=== PATIENT | female | born 1990 ===

== ENCOUNTER 2017-07-02 14:28 | Outpatient (CLI) | payer OTHER ==
[~2017-07-02] VITALS: Ht 162.6 cm; Wt 54.4 kg
== END 2017-07-02 14:45 | disposition home or self-care (01) ==
LOC: OFIC 805 14:28
DX: J30.89 Other allergic rhinitis (principal)

== ENCOUNTER 2017-08-07 11:39 | Outpatient (CLI) | payer OTHER | END 2017-08-07 11:45 | disposition home or self-care (01) | LOC: LAB 11:39 | DX: J10.00 Influenza due to other identified influenza virus with unspecified type of pneumonia (principal) ==

== ENCOUNTER 2017-09-18 14:28 | Outpatient (CLI) | payer OTHER | END 2017-09-18 15:00 | disposition home or self-care (01) | LOC: NUCLEAR 14:28 | DX: I82.491 Acute embolism and thrombosis of other specified deep vein of right lower extremity (principal) ==

== ENCOUNTER 2017-11-19 02:49 | Inpatient (IN) | payer OTHER ==
[~2017-11-19] VITALS: Ht 162.6 cm; Wt 3.2 kg
[2017-11-19] MEDS ORDERED: PRENATAL 19 TA1 EAC1 PO (03:48)
== END 2017-11-22 12:44 | disposition home or self-care (01) | DRG 766 ==
LOC: LDR 02:49 → SURG-SUITE 02:49
PROVIDERS: Obstetrics & Gynecology Maternal & Fetal Medicine
PROC: 4A033R1 Measurement of Arterial Saturation, Peripheral, Percutaneous Approach (ICD-10-PCS; 2017-11-19)
PROC: 4A1HXCZ Monitoring of Products of Conception, Cardiac Rate, External Approach (ICD-10-PCS; 2017-11-19)
PROC: 10D00Z1 Extraction of Products of Conception, Low, Open Approach (ICD-10-PCS; principal; 2017-11-19 03:00)
DX: O64.1XX0 Obstructed labor due to breech presentation, not applicable or unspecified (principal); Z3A.38 38 weeks gestation of pregnancy; Z37.0 Single live birth

== ENCOUNTER 2019-03-27 12:56 | Outpatient (CLI) | payer OTHER ==
[~2019-03-27 12:56] MED LIST: PRENATAL 19 TA1 EAC1 PO
== END 2019-03-27 13:04 | disposition home or self-care (01) ==
LOC: RAD 12:56
DX: M25.531 Pain in right wrist (principal); M25.532 Pain in left wrist

== ENCOUNTER 2019-09-15 10:37 | Outpatient (CLI) | payer OTHER | END 2019-09-15 11:00 | disposition home or self-care (01) | LOC: OFIC 805 10:37 | DX: J30.89 Other allergic rhinitis (principal); R09.82 Postnasal drip; R49.1 Aphonia ==

== ENCOUNTER 2020-02-11 11:31 | Outpatient (CLI) | payer OTHER | END 2020-02-13 12:31 | disposition home or self-care (01) | LOC: OFIC 805 11:31 | PROVIDERS: ATTEND Otolaryngology | DX: J30.89 Other allergic rhinitis (principal); R09.82 Postnasal drip ==

== ENCOUNTER 2020-04-08 09:18 | Emergency (ER) | payer OTHER ==
[~2020-04-08] VITALS: Ht 162.6 cm; Wt 55.3 kg
== END 2020-04-08 11:00 | disposition home or self-care (01) ==
LOC: ER 09:18
DX: B34.9 Viral infection, unspecified (principal); Z20.828 Contact with and (suspected) exposure to other viral communicable diseases

== ENCOUNTER 2021-02-02 10:48 | Outpatient (CLI) | payer OTHER | END 2021-02-02 11:00 | disposition home or self-care (01) | LOC: LAB 10:48 | PROVIDERS: ATTEND Surgery | DX: U07.1 COVID-19 (principal); R05 Cough; R06.02 Shortness of breath ==

== ENCOUNTER 2021-02-02 13:00 | Outpatient (CLI) | payer OTHER | END 2021-02-02 14:00 | disposition home or self-care (01) | LOC: ASH CLINIC 13:00 | PROVIDERS: ATTEND Surgery | DX: Z23 Encounter for immunization (principal); U07.1 COVID-19 ==

== ENCOUNTER 2021-05-23 09:00 | Outpatient (CLI) | payer OTHER | END 2021-05-23 09:30 | disposition home or self-care (01) | LOC: PPH VACUNA 09:00 | PROVIDERS: ATTEND Emergency Medicine Pediatric Emergency Medicine | DX: Z23 Encounter for immunization (principal) ==